=== PATIENT | male | born 1985 | race Caucasian/White ===

== ENCOUNTER 2017-06-01 10:27 | Emergency (ER) | payer OTHER ==
[2017-06-01] VITALS (9 sets, daily range): BP systolic 122–164; BP diastolic 72–111
[~2017-06-01] VITALS: Ht 172.7 cm; Wt 72.6 kg
[~2017-06-01 10:27] MED LIST: HUMULIN R100 UNIT/1 SUBQ; LANTUS100 UNIT/2 SUBQ; NORCO 10-325 T1 EACH ORAL; TOPIRAMATE25 MG PO
[2017-06-01] MEDS ORDERED: HUMALOG100 UNIT/3 (10:30)
[2017-06-01] MEDS ORDERED: LANTUS SOL100 UNIT/1 (10:30)
[2017-06-01] MEDS ORDERED: KEPPRA500 M3 ORAL (10:30)
[2017-06-01] MEDS ORDERED: levETIRAcetam 500 MG in D5W 110 ML IV ONE (10:45)
[2017-06-01] MEDS ORDERED: levETIRAcetam 500mg vial IV ONE (10:48)
[2017-06-01 10:56] LABS: BASOPHILS % (AUTO) 1.8 % (0.0-2.0); EOSINOPHILS % (AUTO) 1.1 % (0.0-3.0); LYMPHOCYTES % (AUTO) 12.7 % (20.0-45.0); MEAN CORPUSCULAR HGB CONC 34.4 G/DL (32.0-36.0); MEAN CORPUSCULAR VOLUME 93 FL (80-99); MONOCYTES % (AUTO) 6.5 % (1.0-10.0); NEUTROPHILS % (AUTO) 77.9 % (45.0-75.0); PLATELET COUNT 388 K/UL (150-450); RED BLOOD COUNT 4.47 M/UL (4.70-6.10); RED CELL DISTRIBUTION WIDTH 10.8 % (11.6-14.8); WHITE BLOOD COUNT 7.3 K/UL (4.8-10.8)
--- NOTE | 2017-06-01 11:10 | Emergency Room Report ---
History of Present Illness General Chief Complaint: Seizure Source: Patient (DENISE YUN M.D.) Present Illness HPI 31-year-old male presents ED for evaluation. Patient had a witnessed seizure at work. Witnessed by coworker per last 20-30 seconds. Has history of seizures and takes Keppra as per EMS. I talked to patient he did not remember where he was when he had the seizure. When asked what medications he takes he says "the same". When asked what dosage of medication he takes he states "10%" . EMS states patient was still post ictal upon arrival. Accu-Chek is in the 300s. Patient does have a history of diabetes. Patient denies headaches, blurry vision. Denies nausea or vomiting. Denies fevers or chills. No other aggravating relieving factors. Denies any other associated symptoms (DENISE YUN M.D.) Allergies: Coded Allergies: No Known Allergies (Unverified , 02/08/13) Patient History Past Medical History: DM, seizures, migraines Pertinent Family History: none Social History: Denies: smoking, alcohol use, drug use Immunizations: UTD Reviewed Nursing Documentation: PMH: Agreed, PSxH: Agreed (DENISE YUN M.D.) Nursing Documentation-PMH Past Medical History: No History, Except For Hx Diabetes: Yes Hx Neurological Problems: Yes - MIGRAINES Hx Seizures: Yes (DENISE YUN M.D.) Review of Systems All Other Systems: negative except mentioned in HPI (DENISE YUN M.D.) Physical Exam Vital Signs Date Time Temp Pulse Resp B/P (MAP) Pulse Ox O2 Delivery O2 Flow Rate FiO2 06/01/17 10:22 96.3 93 16 132/86 99 Room Air Sp02 EP Interpretation: reviewed, normal General Appearance: no apparent distress, alert, GCS 15, non-toxic Head: normocephalic, atraumatic Eyes: bilateral eye normal inspection, bilateral eye PERRL ENT: hearing grossly normal, normal pharynx, no angioedema, normal voice Neck: full range of motion, supple/symm/no masses Respiratory: chest non-tender, lungs clear, normal breath sounds, speaking full sentences Cardiovascular #1: regular rate, rhythm, no edema Cardiovascular #2: 2+ carotid (R), 2+ carotid (L), 2+ radial (R), 2+ radial (L) , 2+ dorsalis pedis (R), 2+ dorsalis pedis (L) Gastrointestinal: normal bowel sounds, non tender, soft, non-distended, no guarding, no rebound Rectal: deferred Genitourinary: normal inspection, no CVA tenderness Musculoskeletal: back normal, gait/station normal, normal range of motion, non- tender Neurologic: alert, responsive, motor strength/tone normal, sensory intact, other - disoriented Psychiatric: mood/affect normal, no suicidal/homicidal ideation Reflexes: 3+ bicep (R), 3+ bicep (L), 3+ tricep (R), 3+ tricep (L), 3+ knee (R) , 3+ knee (L) Skin: normal color, no rash, warm/dry, well hydrated Lymphatic: no adenopathy (DENISE YUN M.D.) Medical Decision Making Diagnostic Impression: Primary Impression: Seizure disorder Additional Impression: Altered level of consciousness Labs Test 06/01/17 10:45 06/01/17 12:43 White Blood Count 7.3 K/UL (4.8-10.8) Red Blood Count 4.47 M/UL (4.70-6.10) Hemoglobin 14.3 G/DL (14.2-18.0) Hematocrit 41.5 % (42.0-52.0) Mean Corpuscular Volume 93 FL (80-99) Mean Corpuscular Hemoglobin 32.0 PG (27.0-31.0) Mean Corpuscular Hemoglobin Concent 34.4 G/DL (32.0-36.0) Red Cell Distribution Width 10.8 % (11.6-14.8) Platelet Count 388 K/UL (150-450) Mean Platelet Volume 7.0 FL (6.5-10.1) Neutrophils (%) (Auto) 77.9 % (45.0-75.0) Lymphocytes (%) (Auto) 12.7 % (20.0-45.0) Monocytes (%) (Auto) 6.5 % (1.0-10.0) Eosinophils (%) (Auto) 1.1 % (0.0-3.0) Basophils (%) (Auto) 1.8 % (0.0-2.0) Sodium Level 132 mEQ/L (135-145) Potassium Level 4.7 mEQ/L (3.4-4.9) Chloride Level 91 mEQ/L (98-107) Carbon Dioxide Level 24 mEQ/L (20-30) Anion Gap 17 (5-15) Blood Urea Nitrogen 13 mg/dL (7-23) Creatinine 0.8 mg/dL (0.7-1.2) Estimat Glomerular Filtration Rate > 60 mL/min (>60) Glucose Level 396 mg/dL (74-106) Calcium Level 9.4 mg/dL (8.6-10.2) Total Bilirubin < 0.2 mg/dL (0.0-1.2) Aspartate Amino Transf (AST/SGOT) 13 U/L (5-40) Alanine Aminotransferase (ALT/SGPT) 11 U/L (3-41) Alkaline Phosphatase 82 U/L (40-129) Total Protein 6.6 g/dL (6.6-8.7) Albumin 4.1 g/dL (3.5-5.2) Globulin 2.5 g/dL Albumin/Globulin Ratio 1.6 (1.0-2.7) Salicylates Level 7 mg/dL (10-30) Acetaminophen Level < 10 ug/mL (10-30) Serum Alcohol < 10 mg/dL (DENISE YUN M.D.) ER Course The patient was discussed with Dr. Hernandez at [facility] regarding possible transfer. Per the patient's coworkers patient had been behaving bizarrely even prior to the seizure episodes. Patient was noted to have previous history of brain surgery after traumatic brain injury. (Mello Conway) EKG Diagnostic Results Rate: tachycardiac Rhythm: NSR ST Segments: no acute changes ASA given to the pt in ED: No (DENISE YUN M.D.) Rhythm Strip Diag. Results EP Interpretation: yes Rhythm: NSR, no PVC's, no ectopy (DENISE YUN M.D.) CT/MRI/US Diagnostic Results CT/MRI/US Diagnostic Results : Imaging Test Ordered: CT Head Impression s/p craniotomy (DENISE YUN M.D.) Last Vital Signs Date Time Temp Pulse Resp B/P (MAP) Pulse Ox O2 Delivery O2 Flow Rate FiO2 06/01/17 10:33 92 16 Room Air 06/01/17 10:31 96.3 144/94 99 Status: improved (DENISE YUN M.D.) Status: unchanged (Mello Conway) Disposition: ADMITTED INPATIENT Condition: Serious Referrals: NOT CHOSEN IPA/,REFERRING (PCP) DENISE YUN M.D. Jun 01, 2017 11:10 Mello Conway Jun 01, 2017 19:24
[2017-06-01 11:18] LABS: ACETAMINOPHEN < 10 ug/mL (10-30); ALANINE AMINOTRANSFERASE 11 U/L (3-41); ALBUMIN/GLOBULIN RATIO 1.6 (1.0-2.7); ALCOHOL < 10 mg/dL; ANION GAP 17 (5-15); ASPARTATE AMINO TRANSFERASE 13 U/L (5-40); CALCIUM 9.4 mg/dL (8.6-10.2); CARBON DIOXIDE 24 mEQ/L (20-30); CHLORIDE 91 mEQ/L (98-107); CREATININE 0.8 mg/dL (0.7-1.2); GLOMERULAR FILTRATION RATE > 60 mL/min (>60); HEMOLYSIS 2; POTASSIUM 4.7 mEQ/L (3.4-4.9); SODIUM 132 mEQ/L (135-145); TOTAL PROTEIN 6.6 g/dL (6.6-8.7)
--- NOTE | 2017-06-01 11:29 | Diagnostic Imaging Report ---
Indication: Altered mental status Technique: Contiguous 5 mm thick transaxial imaging of the head obtained in a Siemens Sensation [address] scanner. Soft tissue and bone windows generated. Total Dose length Product (DLP): [address] Dose Index Volume (CTDIvol): 70.38, 0.15 mGy Comparison: none Findings: There is a band of low attenuation projected over the left frontal lobe in the anterior cranial fossa. This may be artifact, but not certain of this. There is a right temporal craniotomy noted. There is a metallic plate over the craniotomy site. There is no mass effect, edema or acute intracranial hemorrhage identified. The ventricles and basal cisterns appear normal. Impression: No acute intracranial hemorrhage, mass effect or edema identified. Low-attenuation focus in the left frontal region possibly artifact. Consider MR for clarification or repeat CT. Right temporal craniotomy The CT scanner at [facility] is accredited by the [employer] and the scans are performed using dose optimization techniques as appropriate to a performed exam including Automatic Exposure control.
[2017-06-01] MEDS ORDERED: Morphine Sulfate 4mg/ml Inj IVP ONE (12:30)
[2017-06-01] MEDS ORDERED: Acetaminophen 500mg (ES) tab ORAL ONE (17:45)
[2017-06-01] MEDS ORDERED: Metoclopramide 10mg/2ml Inj IVP ONE (18:15)
--- NOTE | 2017-06-02 17:45 | Consultation ---
DATE OF CONSULTATION: 06/01/2017 INTERNAL MEDICINE CONSULTATION CONSULTING PHYSICIAN: Reynold Ely M.D. History Of Present Illness: This is a 31-year-old male who came to the emergency room with a witnessed seizure. The patient has a long-standing history of seizures and takes Keppra. At this point, he is not fully oriented and was postictal on arrival. The patient was evaluated. As per [facility] request, at this point, he is stable for transfer to [facility] facility. Past Medical History: Diabetes mellitus, seizure disorder and history of migraines. HOME MEDICATIONS: Keppra. REVIEW OF SYSTEMS: Unreliable. PHYSICAL EXAMINATION: GENERAL: Examination reveals a young male. HEENT: Unremarkable. CHEST: Clear. ABDOMEN: Soft. NEUROLOGIC: Nonfocal. The patient is postictal. Laboratory Data: Lab testing . Normal CBC and BMP. EKG, normal sinus rhythm. Head CT is negative except for previous craniotomy. IMPRESSION: 1. Seizure disorder. 2. Previous craniotomy. Discussion: The patient is stable for transfer to [facility]. We will notify group insurance special agent and ER physician. Reynold Ely M.D. DR: TEJA JOB#: [id number] CC:
--- NOTE | 2017-06-09 23:20 | Cardiology Report ---
APPROVED REPORT EKG Measurement Heart [id number] Sinus tachycardia Possible Left atrial enlargement Incomplete right bundle branch block Borderline ECG
== END 2017-06-01 20:10 | disposition short-term general hospital (02) ==
LOC: EDBD 10:27 → EMR 10:47
DX: G40.909 Epilepsy, unspecified, not intractable, without status epilepticus (principal); R40.4 Transient alteration of awareness; E11.9 Type 2 diabetes mellitus without complications; G43.909 Migraine, unspecified, not intractable, without status migrainosus
CPT/HCPCS: 36415; 70450; 80053; 80300; 85025; 93005; 96361; 96365; 96375; 99285; G0480; J1953; J2270; J2765; 80329